=== PATIENT | female | born 1955 | race Caucasian/White ===

== ENCOUNTER → 2017-05-29 | Outpatient (CLI) | payer BC ==
[~2017-05-29] MED LIST: ASPI325T6 PO; ASPIR-LOW81 MG PO; CALCIUM + D 6001 TA1 PO; CO Q-10 100 MG-1 SGL PO; FORTAMET1000 MG PO; GLUCOPHAGE1000 MG PO; HUMALOG100 U/ML SQ; JANUVIA 100MG100 MG PO; JANUVIA100 MG PO; LANTUS; LEVEMIR FLEX100 U/ML SQ; LEVEMIR FLEXPEN SQ; LIPITOR 10MG10 MG PO; MAGNESIUM250 M1 PO; NEURONTIN600 MG/TAB PO; OCUVITE1 TA1 PO; ONE DAILY1 TA2 PO; PHENOBARBITAL; PHENOBARBITAL100 MG PO; PHENOBARBITAL97.2 MG PO; SUPER B COMPLEX1 TA2 PO; VYTORIN; WELLBUTRIN XL300 MG PO
== END ==
LOC: MC.RAD 14:22
DX: Z12.31 Encounter for screening mammogram for malignant neoplasm of breast (principal)

== ENCOUNTER → 2019-08-03 | Outpatient (CLI) | payer BC | LOC: MC.RAD 15:08 | DX: Z12.31 Encounter for screening mammogram for malignant neoplasm of breast (principal) ==

== ENCOUNTER → 2020-08-08 | Outpatient (CLI) | payer BC | LOC: MC.RAD 15:27 | DX: Z12.31 Encounter for screening mammogram for malignant neoplasm of breast (principal) ==

== ENCOUNTER 2021-02-08 20:16 | Emergency (ER) | payer BC ==
[~2021-02-08] VITALS: Ht 162.6 cm; Wt 54.5 kg
[2021-02-08 20:20] VITALS: TEMP 97.5
[2021-02-08 20:46] LABS: BASO % 0.2 % (0.0-2.0); EOS % 0.2 % (0-4.0); GRAN # 4.3 (1.4-6.5); GRAN % 84.1 % (42.2-75.2); LYMPH # 0.4 (1.2-3.4); LYMPH % 7.5 % (20.0-51.0); MEAN CELL VOLUME 89 fl (80.0-100.0); MEAN CORPUSCULAR HGB CONC 34 g/dl (33.0-37.0); MEAN PLATELET VOLUME 7.9 fl (7.4-10.4); MONO # 0.4 (0.1-0.6); MONO % 7.6 % (1.7-9.3); PLATELET COUNT 445 K/mm3 (130-400); RED BLOOD COUNT 3.18 M/mm3 (4.10-5.30); REDCELL DISTRIBUTION WIDTH-CV 15.3 % (11.5-14.5)
[2021-02-08 20:57] LABS: ALANINE AMINOTRANSFERASE 28 U/L (4-34); ALBUMIN 3.5 gm/dL (3.5-5.0); ALKALINE PHOSPHATASE 159 U/L (50-136); ANION GAP 5 mmol/L (7-16); AST,SGOT 42 U/L (15-37); BILIRUBIN,TOTAL 0.1 mg/dL (0.0-1.0); BLOOD UREA NITROGEN 8 mg/dL (7-17); CALCIUM 8.5 mg/dL (8.4-10.2); CARBON DIOXIDE 28 mmol/L (22-30); CHLORIDE 94 mmol/L (98-107); CREATININE, serum 0.27 (0.52-1.25); GLUCOSE 314 mg/dL (74-106); LIPASE 47 U/L (23-300); POTASSIUM 4.4 mmol/L (3.4-5.0); SODIUM 127 mmol/L (137-145); TOTAL PROTEIN 6.4 gm/dL (6.4-8.2)
[2021-02-08 21:03] LABS: HEMATOCRIT 28.2 % (37.0-47.0); HEMOGLOBIN 9.7 g/dl (12.5-16.0); MEAN CORPUSCULAR HEMOGLOBIN 31 pg (27.0-31.0)
[2021-02-08 21:13] LABS: ACETONE,SERUM NEGATIVE
[2021-02-08 21:22] LABS: COLLECTION METHOD CLEAN CATCH
[2021-02-08 21:26] LABS: TROPONIN-I < 0.012 ng/mL (0.000-0.035)
[2021-02-08 21:29] LABS: MUCOUS Present /lpf; PH 7 (5-8); URINE APPEARANCE Hazy; URINE BACTERIA Rare /hpf; URINE BILIRUBIN Negative (NEGATIVE); URINE BLOOD Negative (NEGATIVE); URINE COLOR Yellow; URINE GLUCOSE 2+ (NEGATIVE); URINE KETONE Trace (NEGATIVE); URINE LEUKOCYTE ESTERASE 1+ (NEGATIVE); URINE NITRATE Negative (NEGATIVE); URINE PROTEIN(semi-quant) Negative (NEGATIVE); URINE RBC 0-2 /hpf; URINE UROBILINOGEN Negative (NEGATIVE)
[2021-02-08 23:36] VITALS: BP 136/74; PULSE 78
== END 2021-02-08 23:36 | disposition home or self-care (01) ==
LOC: COL.ER 20:16
PROVIDERS: Nurse Practitioner Primary Care
DX: I48.91 Unspecified atrial fibrillation (principal); D53.9 Nutritional anemia, unspecified; E10.649 Type 1 diabetes mellitus with hypoglycemia without coma; E10.40 Type 1 diabetes mellitus with diabetic neuropathy, unspecified; G40.909 Epilepsy, unspecified, not intractable, without status epilepticus; Z79.4 Long term (current) use of insulin
CPT/HCPCS: J7030

== ENCOUNTER 2021-04-01 19:59 | Observation (INO) | payer BC ==
[~2021-04-01] VITALS: Ht 152.4 cm; Wt 40.9 kg
[2021-04-01 20:22] LABS: BASO % 0.3 % (0.0-2.0); GRAN # 2.8 (1.4-6.5); GRAN % 78.9 % (42.2-75.2); HEMATOCRIT 38.8 % (37.0-47.0); HEMOGLOBIN 12.9 g/dl (12.5-16.0); LYMPH # 0.4 (1.2-3.4); LYMPH % 12.2 % (20.0-51.0); MEAN CELL VOLUME 93 fl (80.0-100.0); MEAN CORPUSCULAR HEMOGLOBIN 31 pg (27.0-31.0); MEAN CORPUSCULAR HGB CONC 33 g/dl (33.0-37.0); MEAN PLATELET VOLUME 8.4 fl (7.4-10.4); MONO # 0.3 (0.1-0.6); MONO % 8.6 % (1.7-9.3); PLATELET COUNT 255 K/mm3 (130-400); RED BLOOD COUNT 4.17 M/mm3 (4.10-5.30)
[2021-04-01 20:28] LABS: COLLECTION METHOD CLEAN CATCH
[2021-04-01 20:29] LABS: ALANINE AMINOTRANSFERASE 20 U/L (4-34); ALBUMIN 4.1 gm/dL (3.5-5.0); ANION GAP 7 mmol/L (7-16); AST,SGOT 41 U/L (15-37); BILIRUBIN,TOTAL 0.3 mg/dL (0.0-1.0); BLOOD UREA NITROGEN 5 mg/dL (7-17); CALCIUM 8.8 mg/dL (8.4-10.2); CARBON DIOXIDE 27 mmol/L (22-30); CHLORIDE 91 mmol/L (98-107); CREATININE, serum 0.33 (0.52-1.25); GLUCOSE 117 mg/dL (74-106); POTASSIUM 3.8 mmol/L (3.4-5.0); SODIUM 125 mmol/L (137-145); TOTAL PROTEIN 7.3 gm/dL (6.4-8.2)
[2021-04-01 20:35] LABS: MUCOUS Present /lpf; PH 8 (5-8); SQUAMOUS EPITHELIAL 0-2 /hpf; URINE APPEARANCE Clear; URINE BACTERIA Rare /hpf; URINE BILIRUBIN Negative (NEGATIVE); URINE BLOOD Negative (NEGATIVE); URINE COLOR Yellow; URINE GLUCOSE Negative (NEGATIVE); URINE KETONE 1+ (NEGATIVE); URINE LEUKOCYTE ESTERASE Negative (NEGATIVE); URINE NITRATE Negative (NEGATIVE); URINE PROTEIN(semi-quant) Negative (NEGATIVE); URINE RBC 0-2 /hpf; URINE UROBILINOGEN Negative (NEGATIVE)
[2021-04-01 20:40] LABS: TROPONIN-I < 0.012 ng/mL (0.000-0.035)
[2021-04-01 20:44] LABS: ALKALINE PHOSPHATASE 164 U/L (50-136)
[2021-04-01] MEDS ORDERED: NEURONTIN300 MG/CAP PO (22:31)
[2021-04-01] MEDS ORDERED: COZAAR 50MG50 MG/TAB PO (22:33)
[2021-04-01] MEDS ORDERED: SYNTHROID0.05 MG/TA PO (22:34)
[2021-04-01] MEDS ORDERED: LEVEMIR100 U/ML SQ (22:36)
[2021-04-01] MEDS ORDERED: HUMALOG100 U/ML SQ (22:36)
[2021-04-01] MEDS ORDERED: ELIQUIS 5MG PO (22:39)
[2021-04-01] MEDS ORDERED: CALCIUM 600MG+D1 TAB PO (22:40)
[2021-04-01] MEDS ORDERED: B COMPLEX #11 TA1 PO (22:40)
[2021-04-01] MEDS ORDERED: ONE-A-DAY ESSE1 EACH PO (22:40)
[2021-04-02 02:04] LABS: CALCIUM 8.5 mg/dL (8.4-10.2); CREATININE, serum 0.3 (0.52-1.25); POTASSIUM 3.8 mmol/L (3.4-5.0)
[2021-04-02 05:33] LABS: BASO % 0.2 % (0.0-2.0); EOS % 0.4 % (0-4.0); GRAN # 3.6 (1.4-6.5); GRAN % 73.6 % (42.2-75.2); LYMPH # 0.7 (1.2-3.4); LYMPH % 14.9 % (20.0-51.0); MEAN CELL VOLUME 92 fl (80.0-100.0); MEAN CORPUSCULAR HGB CONC 33 g/dl (33.0-37.0); MEAN PLATELET VOLUME 8.7 fl (7.4-10.4); MONO # 0.5 (0.1-0.6); MONO % 10.5 % (1.7-9.3); PLATELET COUNT 227 K/mm3 (130-400); RED BLOOD COUNT 3.53 M/mm3 (4.10-5.30); REDCELL DISTRIBUTION WIDTH-CV 13.8 % (11.5-14.5)
[2021-04-02 05:36] LABS: HEMATOCRIT 32.6 % (37.0-47.0); HEMOGLOBIN 10.9 g/dl (12.5-16.0); MEAN CORPUSCULAR HEMOGLOBIN 31 pg (27.0-31.0)
[2021-04-02 05:43] LABS: CALCIUM 8.3 mg/dL (8.4-10.2); CREATININE, serum 0.3 (0.52-1.25); POTASSIUM 3.3 mmol/L (3.4-5.0)
[2021-04-02 06:34] VITALS: BP 141/87; PULSE 71; TEMP 98.7
--- NOTE | 2021-04-02 06:41 | NUR ---
Patient came up on the floor from ER at 0615. Assessment completed, alert and oriented. denies pain or SOB. She have right arm sling from thumb surgery last 03/28. VS are stable. She have scar in her right hip from her surgery last January. She is on seizure precautions. Bed alarm is on and call light is within reach. Swallow her pills good. No further complains. Will give report to incoming RN.
[2021-04-02 07:36] VITALS: BP 134/77; PULSE 76; TEMP 98
--- NOTE | 2021-04-02 10:51 | NUR ---
general farmworker met with patient to discuss discharge plan. Patient lives alone within her home here in [place]. Patient has a sister (Eneida) who lives in [place] [phone]. Patient's PCP is Dr. Clark and utilizes both [facility] and [facility] needs. Patient received a total hip in January and was participating in outpatient PT. Patient suffered a fall last week resulting in a broken wrist. Dr. Liang completed surgery on R wrist last Wednesday 03/28. Patient states she is independent on ADL's and uses a walker around the house. Patient states when she leaves the house, she uses a crutch but with the broken wrist that is "hard to do". Patient states that her drive way has a steep incline that she can't get up with a walker but can get up with the crutch. Patient states that she has a DPOA-HC established and has a copy of it at home. Patient has a accounting practice manager student coming to her house multiple times a week to care for her cat's and is utilizing [facility] for other needs as well. "She took my walker around to different stores to get a basket put on". Patient plans to discharge home. *Discharge plan: Home; pending PT/OT rec's*
[2021-04-02 11:17] VITALS: BP 133/73; PULSE 96; TEMP 98.4
--- NOTE | 2021-04-02 12:02 | NUR ---
Contacted hospitalist re bs= [phone]
--- NOTE | 2021-04-02 12:49 | NUR ---
First visit from the pediatric physical therapy assistant. No needs right now.
--- NOTE | 2021-04-02 14:08 | NUR ---
cold storage worker met with patient to follow up on home health recommendations from PT/OT. Patient is insistent on not having home health. Reason's provided are: "i have cats for one and two i'm doing therapy as an outpatient". cold storage worker educated patient on what home health involves and offered patient Medicare.gov list of home health agencies. Patient had no desire to review list. cold storage worker contacted PCP office to inform. *Discharge Plan:Home*
[2021-04-02 15:19] VITALS: BP 150/79; PULSE 92; TEMP 98.4
--- NOTE | 2021-04-02 17:30 | NUR ---
Patient doing well throughout the day, would like to discharge this afternoon. Contacted hospitalist with blood sugars, S[facility] AG in to see patient. Patient Denies pain throughout the day, has been up ambulating in room with steady gait and cane. Patient denies needs at this time. Discharge education provided to patient. Educated on when to call provider and medication changes. All questions answered. Patient out by wheelchair with surgical staff INT to left forarm discontinued, catheter tip intact.
== END 2021-04-02 17:30 | disposition home or self-care (01) ==
LOC: COL.ER 19:59 → SURG 04-02 02:17
PROVIDERS: Emergency Medicine; Nurse Practitioner Family; ADMIT Student in an Organized Health Care Education/Training Program
DX: E11.65 Type 2 diabetes mellitus with hyperglycemia (principal); G93.49 Other encephalopathy; R62.51 Failure to thrive (child); R53.81 Other malaise; E11.40 Type 2 diabetes mellitus with diabetic neuropathy, unspecified; G40.909 Epilepsy, unspecified, not intractable, without status epilepticus; D72.819 Decreased white blood cell count, unspecified; E87.1 Hypo-osmolality and hyponatremia; E87.6 Hypokalemia; E03.9 Hypothyroidism, unspecified; E87.8 Other disorders of electrolyte and fluid balance, not elsewhere classified; E83.42 Hypomagnesemia; E78.5 Hyperlipidemia, unspecified; Z96.641 Presence of right artificial hip joint; Z20.822 Contact with and (suspected) exposure to COVID-19; Z79.899 Other long term (current) drug therapy; Z90.49 Acquired absence of other specified parts of digestive tract; Z90.89 Acquired absence of other organs; Z79.890 Hormone replacement therapy; Z79.4 Long term (current) use of insulin; Z87.891 Personal history of nicotine dependence
CPT/HCPCS: G0378; J1815; J3475; J7030; J7042